=== PATIENT | male | born 1990 | race African-American/Black ===

== ENCOUNTER 2017-05-15 00:11 | Emergency (ER) | payer SELFPAY ==
[~2017-05-15] VITALS: Ht 175.3 cm; Wt 74.0 kg
[2017-05-15 00:14] VITALS: BP 127/65; PULSE 67; RESP 16; TEMP 98.5; O2SAT 97
== END 2017-05-15 01:37 | disposition left against medical advice (07) ==
LOC: NED 00:11
DX: S69.91XA Unspecified injury of right wrist, hand and finger(s), initial encounter (principal)
CPT/HCPCS: 99281